=== PATIENT | male | born 1930 | race Caucasian/White ===

== ENCOUNTER 2017-09-20 06:59 | Day surgery (SDC) | payer MEDICARE ==
[2017-09-19 16:53] LABS: BASOPHILS % (AUTO) 0.4 % (0-1); EOSINOPHILS # (AUTO) 0.2 X10'3 (0-0.9); EOSINOPHILS % (AUTO) 1.9 % (0-6); HEMATOCRIT 34.2 % (42.0-52.0); HEMOGLOBIN 11.6 g/dl (14.0-17.9); LYMPHOCYTES # (AUTO) 5.5 X10'3 (1.1-4.8); LYMPHOCYTES % (AUTO) 67.9 % (21-51); MEAN CORPUSCULAR HEMOGLOBIN 35.4 PG (27.0-31.0); MEAN CORPUSCULAR HGB CONC 33.9 % (33.0-36.5); MEAN CORPUSCULAR VOLUME 104.6 FL (78-98); MEAN PLATELET VOLUME 7.2 FL (7.4-10.4); MONOCYTES # (AUTO) 0.3 X10'3 (0-0.9); MONOCYTES % (AUTO) 3.4 % (2-12); NEUTROPHILS # (AUTO) 2.1 X10'3 (1.8-7.7); NEUTROPHILS % (AUTO) 26.4 % (42-75); PLATELET COUNT 186 X10'3 (140-440); RED BLOOD COUNT 3.27 X10'6 (4.70-6.10); WHITE BLOOD COUNT 8.1 X10'3 (4.5-11.0)
[2017-09-19 17:03] LABS: INR 1.1 INR; PROTHROMBIN TIME 11.2 SECONDS (9.0-12.0)
[2017-09-19 17:04] LABS: ALBUMIN 3.4 G/DL (3.4-5.0); ANION GAP 12 (8-16); BLOOD UREA NITROGEN 17 MG/DL (7-18); CALCIUM 8.5 MG/DL (8.5-10.1); CHLORIDE 109 MMOL/L (99-107); CREATININE 0.81 MG/DL (0.60-1.10); GLUCOSE 92 MG/DL (70-104); POTASSIUM 4.4 MMOL/L (3.5-5.1); SODIUM 144 MMOL/L (135-145); TOTAL CARBON DIOXIDE 23.5 MMOL/L (24-32); eGFR 90 ML/MIN
[2017-09-19 20:10] LABS: NUCLEATED RED BLOOD CELLS 2 /100WBC (0-0); PLATELET ESTIMATE NORMAL; TOTAL CELLS COUNTED 100
[2017-09-19 20:14] LABS: POIKILOCYTOSIS 1+
[~2017-09-20] VITALS: Ht 188 cm; Wt 85.8 kg
[2017-09-20] VITALS (15 sets, daily range): BP systolic 92–132; BP diastolic 57–86
[2017-09-20] MEDS ORDERED: amiodarone in dextrose, iso-osm 150mg/100ml bag IV ONE (07:20)
[2017-09-20] MEDS ORDERED: atropine 0.1mg/ml 10ml syringe IV ONE (07:20)
[2017-09-20] MEDS ORDERED: MIDAZolam 5mg/ml 2ml vial IV ONE (07:20)
[2017-09-20] MEDS ORDERED: morphine 10mg/ml inj. IV ONE (07:20)
[2017-09-20] MEDS ORDERED: diphenhydrAMINE 25mg capsule PO ONE (07:20)
[2017-09-20] MEDS ORDERED: normal saline 1000ml 1,000 ML IV SCH (07:20)
[2017-09-20] MEDS ORDERED: LORazepam 0.5 MG tablet PO ONE (07:25)
[2017-09-20] MEDS ORDERED: DILT180C10 PO (07:39)
[2017-09-20] MEDS ORDERED: enoxaparin 40mg/0.4ml syringe SUBCUT ONE (10:30)
== END 2017-09-20 14:15 | disposition home or self-care (01) ==
LOC: SSTAY O 06:59
PROVIDERS: ATTEND Internal Medicine Cardiovascular Disease
DX: I48.91 Unspecified atrial fibrillation (principal); I35.8 Other nonrheumatic aortic valve disorders; I70.0 Atherosclerosis of aorta; I34.0 Nonrheumatic mitral (valve) insufficiency; Z98.41 Cataract extraction status, right eye; Z98.42 Cataract extraction status, left eye; Z95.5 Presence of coronary angioplasty implant and graft; Z79.899 Other long term (current) drug therapy
CPT/HCPCS: 36415; 80048; 85025; 85610; 92960; 93005; 93312; 93325; J0282; J1650; J2250; J2270; J7030; A4620; J0461